=== PATIENT | female | born 1940 | race Caucasian/White ===

== ENCOUNTER → 2019-03-18 | Outpatient (CLI) | payer MEDICARE, BC ==
[2019-03-18 10:29] LABS: Blood Urea Nitrogen 13 mg/dL (7-17)
--- NOTE | 2019-03-18 15:44 | CT ---
EXAMINATION TYPE: CT urogram wo/w con DATE OF EXAM: 03/18/2019 COMPARISON: None INDICATION: Gross hematuria DLP: 915 mGycm, Automated exposure control for dose reduction was used. CONTRAST: 100 mL of Isovue 300. Study performed without Oral Contrast TECHNIQUE: Axial images were obtained from above the diaphragm to the pubic rami in the axial plane a t 5 mm thick sections. Reconstructed images are reviewed on the computer in the coronal plane. FINDINGS: Limited CT sections are obtained the lung bases. The lung bases are clear. CT ABDOMEN: Liver: Normal Spleen: Normal Pancreas: Normal Adrenal glands: The adrenal glands are normal. Gallbladder: Surgically absent Kidneys: No masses are evident. No hydronephrosis is present. No cysts are present. There are arpit ral nonobstructing renal stones present. This includes a 0.3 cm calcification superior pole left kidn ey, 0.3 cm calcification inferior pole left kidney, 0.3 cm calcification mid to inferior pole left ki dney and a nonobstructing 0.3 cm calcification inferior pole left kidney. On the right this would inc lude a 0.2 cm calcification at the inferior pole right kidney and a 0.3 cm calcification within the m id right kidney. A cortical calcification may be present at the superior pole. On sequential images a nd Three-D reconstructed images performed by the technologist of the kidneys ureter and bladder appea r within normal limits. No filling defects are evident. No hydronephrosis is evident. Aorta: Vascular calcification is within the aorta. Inferior vena cava: Normal. CT PELVIS: Loops of bowel within the abdomen and pelvis are normal. Study is performed without contrast. Fec al debris is within the colon. Appendix: Not visualized Urinary bladder: Normal. Genitourinary structures: Uterus and ovaries are not identified. Osseous structures: No suspicious lytic or sclerotic lesions. IMPRESSIONS: 1. Bilateral nonobstructing renal stones measuring 0.2 to 0.3 cm. 2. Ureters are unremarkable to the urinary bladder. Urinary bladder appears unremarkable.
== END | disposition home or self-care (01) ==
LOC: RADCTMAIN 09:16
PROVIDERS: ATTEND Urology
DX: N20.0 Calculus of kidney (principal)
CPT/HCPCS: 82565; 84520; 74178; 36415; 74400; Q9967

== ENCOUNTER → 2019-06-16 | Outpatient (CLI) | payer MEDICARE, BC ==
--- NOTE | 2019-06-16 11:20 | CT ---
EXAMINATION TYPE: CT chest w con DATE OF EXAM: 06/16/2019 COMPARISON: Correlation CT abdomen 03/18/2019 HISTORY: 78-year-old female Nodule follow up. TECHNIQUE: Contiguous axial scanning of the chest after the administration of 80 mL of Isovue 300. C oronal/sagittal reconstructions performed. CT DLP: 345mGycm. Automatic exposure control utilized for a dose reduction. FINDINGS: Heart normal size without pericardial effusion. Aorta normal caliber with conventional arch vessel branching anatomy. Prominent pericarinal and hilar soft tissue. Soft tissue at the right tracheobronchial angle measures 1.1 cm. Left tracheobronchial angle measures 5 mm. In the right hilum measures 1.0 cm and on the left measures 9 mm. Lymph node in the AP window measures 8 mm. Additional soft tissue tracking down the right infrahilar region measures 3.3 cm craniocaudal x 2.3 x 1.1 cm. Mild bronchial wall thickening. Minimal biapical pleuroparenchymal scarring. Strandy lingular atelectasis. Minimal scattered emphysematous change. 3 mm left upper lobe pulmonary nodule axial image 24. 5 mm right lower lobe pulmonary nodule axial image 37. 5 mm subpleural nodularity posterior right lower lobe axial image 26 likely nodular atelectasis. Abdomen reported separately on recent urogram exam. Punctate 2 mm nonobstructive right renal calculus . Bones: Accentuated midthoracic kyphosis with mild degenerative disc disease. IMPRESSION: 1. Elongated right infrahilar soft tissue density measuring 3.3 x 2.3 x 1.1 cm. If the patient has an y available outside priors, comparison can be made to determine stability. Otherwise, PET CT versus t hree-month follow-up chest CT can be performed. 2. Some prominent pericarinal and hilar lymph nodes measuring up to 1.1 cm may be reactive/post infla mmatory and should be reassessed on the patient's follow-up exam. 3. A few pulmonary nodules measuring up to 5 mm. Again, reassessed at follow-up.
== END | disposition home or self-care (01) ==
LOC: RADCTMAIN 09:47
PROVIDERS: ATTEND Internal Medicine
DX: R91.8 Other nonspecific abnormal finding of lung field (principal); M79.89 Other specified soft tissue disorders
CPT/HCPCS: 36415; 71260; 82565; 84520

== ENCOUNTER → 2019-06-26 | Outpatient (CLI) | payer MEDICARE, BC ==
--- NOTE | 2019-06-27 14:53 | PE ---
EXAMINATION TYPE: PET CT fusion skull to thigh DATE OF EXAM: 06/26/2019 COMPARISON: CT chest 06/16/2019 Prior PET/CT: None HISTORY: Lung nodule TECHNIQUE: Following the intravenous administration of 12.79 mCi of F-18 FDG, whole body images are performed from the skull base to the midthigh. Images are reviewed on the computer in the coronal, a xial, and sagittal planes. Reconstructed rotating images are created on independent workstation and reviewed on the computer. A localization and attenuation correction CT is performed in conjunction with the PET scan. DLP: 279.86 mGycm SCAN: Initial Blood glucose: 113 mg/dL Average Mediastinum SUV: 1.11 Average Liver SUV: 2.22 FINDINGS: NECK: THORAX: There is some faint radiotracer uptake within the pretracheal space near the level the radha . This has an SUV value 2.75. This could correspond with a small lymph node at this level. A subcarin al lymph node has intermediate signal of 1.80. A left infrahilar node has increased signal is 3.1. ABDOMEN: No abnormal uptake PELVIS: No suspicious uptake. There is some mild increased muscle signal is in the posterior right th igh musculature near the insertion on the pubic ramus. Consider strain. OSSEOUS STRUCTURES: No abnormal uptake LOCALIZATION CT: Ascending thoracic aorta at the level of main pulmonary artery is 3.5 cm. The main p ulmonary artery the bifurcation is 2.7 cm coronary artery calcification is noted. Small nonobstructin g renal stones are present bilaterally. COMPARISON: The suspected adenopathy in the mediastinum appears similar diminished in size. Consider close monitoring with CT with contrast. IMPRESSION: 1. There is intermediate signal within the suspected lymph nodes of the chest. These appear similar s lightly smaller in size from comparison. While inflammatory changes are within the differential, some slight increased radiotracer such as the left infrahilar lymph node at 3.1 SUV value in the pretrach eal node with an SUV value 2.75 potentially could be within the neoplastic range. Close monitoring is recommended. Recommendations: 1. Follow-up CT chest with contrast 3 months.
== END | disposition home or self-care (01) ==
LOC: RADPETMAIN 09:34
PROVIDERS: ATTEND Internal Medicine
DX: R91.1 Solitary pulmonary nodule (principal)
CPT/HCPCS: 78815; A9552

== ENCOUNTER → 2019-10-04 | Outpatient (CLI) | payer MEDICARE, BC ==
--- NOTE | 2019-10-04 14:21 | CT ---
EXAMINATION TYPE: CT chest w con DATE OF EXAM: 10/04/2019 COMPARISON: PET/CT dated 06/26/2019 HISTORY: Left-sided pulmonary nodule CT DLP: 123.6 mGycm. Automated Exposure Control for Dose Reduction was Utilized. TECHNIQUE: CT scan of the thorax is performed following with IV Contrast, patient injected with 100 mL of Isovue 300. FINDINGS: LUNGS: There is a similar approximate 4 mm subsequent right lower lobe pulmonary nodule on series 4 i mage 33. Previously seen focal area of pleural thickening is redemonstrated on today's exam. There is a stable 3 mm pulmonary nodule on the left upper lobe on image 23. There is a similar perihilar density measuring 1.1 x 2.1 cm (as opposed the prior of 1.1 x 2.3 cm). R edemonstration of minimal emphysematous change, centrilobular. Subsegmental dependent atelectasis edson aterally. MEDIASTINUM: There is a mildly enlarged precarinal lymph node measuring 1.2 cm in short axis (1.1 cm in short axis on the prior). 1.0 cm short axis left perihilar lymph node is also similar to the prior (prior measurement of 0.9 cm). No pericardial effusion is seen. Very mild coronary calcifications. OTHER: Mild multilevel degenerative change of the thoracic spine. Gallbladder surgically absent. Too small to accurately characterize 4 mm hepatic lesion is markedly hypoattenuated on image 48 and likel y represents a small cyst. Additional too small to characterize hepatic lesions are marked on image 5 7 and 45. IMPRESSION: 1. No interval growth of the right perihilar soft tissue density (possible perihilar lymph node). No new mediastinal adenopathy and similar size of the previously seen mildly enlarged and upper limits o f normal mediastinal lymph nodes. 2. Stable 4 mm right lower lobe pulmonary nodule and 3 mm left upper lobe pulmonary nodule. 3. Too small to accurately characterize hepatic lesions.
== END | disposition home or self-care (01) ==
LOC: RADCTMAIN 10:40
PROVIDERS: ATTEND Internal Medicine
DX: R91.1 Solitary pulmonary nodule (principal)
CPT/HCPCS: 82565; 84520; 71260; 36415; Q9967